=== PATIENT | female | born 1975 | race Caucasian/White ===

== ENCOUNTER 2021-02-19 18:12 | Observation (INO) | payer OTHER ==
[~2021-02-19] VITALS: Ht 167.7 cm; Wt 76.8 kg
[2021-02-19] MEDS ORDERED: NS IV 1000 ML 1,000 ML IV SCH (18:30)
[2021-02-19 18:33] LABS: HEMATOCRIT 42 % (35-52); HEMOGLOBIN 14.1 G/DL (11.5-16.0); MEAN CORPUSCULAR HEMOGLOBIN 30 PG (25-34); MEAN CORPUSCULAR VOLUME 90 FL (80-99)
[2021-02-19 18:34] LABS: BASOPHILS # (AUTO) 0.1 10^3/uL (0.0-0.1); BASOPHILS % (AUTO) 1 % (0-10); EOSINOPHILS # (AUTO) 0.2 10^3/uL (0.0-0.3); EOSINOPHILS % (AUTO) 2 % (0-10); LYMPHOCYTES # (AUTO) 4.1 X 10^3 (1.0-4.0); LYMPHOCYTES % (AUTO) 36 % (12-44); MEAN CORPUSCULAR HGB CONC 34 G/DL (32-36); MEAN PLATELET VOLUME 9.3 FL (7.4-10.4); MONOCYTES # (AUTO) 0.7 X 10^3 (0.0-1.0); MONOCYTES % (AUTO) 7 % (0-12); NEUTROPHILS # (AUTO) 5.9 X 10^3 (1.8-7.8); NEUTROPHILS % (AUTO) 53 % (42-75); PLATELET COUNT 325 10^3/uL (130-400)
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
[2021-02-19 18:53] LABS: ALANINE AMINOTRANSFERASE 8 U/L (0-55); ALKALINE PHOSPHATASE 80 U/L (40-136); BILIRUBIN,TOTAL 0.2 MG/DL (0.1-1.0); BUN/CREATININE RATIO 16; CALCIUM 8.6 MG/DL (8.5-10.1); CARBON DIOXIDE 20 MMOL/L (21-32); CHLORIDE 106 MMOL/L (98-107); CREATININE SERUM 1.02 MG/DL (0.60-1.30); GFR ESTIMATED 58; GLUCOSE 129 MG/DL (70-105); POTASSIUM 4.2 MMOL/L (3.6-5.0); SODIUM 141 MMOL/L (135-145); TOTAL PROTEIN 6.6 GM/DL (6.4-8.2)
[2021-02-19 18:54] LABS: ACETAMINOPHEN < 10 UG/ML (10-30); SALICYLATE < 0.3 MG/DL (5.0-20.0)
[2021-02-19] MEDS ORDERED: NS IV 1000 ML 1,000 ML IV STA (19:37)
[2021-02-19 21:18] LABS: BILIRUBIN,URINE NEGATIVE (NEGATIVE); CLARITY,URINE CLEAR; COLOR,URINE YELLOW; GLUCOSE, URINE (UA) NEGATIVE (NEGATIVE); KETONES,URINE NEGATIVE (NEGATIVE); LEUKOCYTE ESTERASE ,URINE NEGATIVE (NEGATIVE); NITRITE,URINE NEGATIVE (NEGATIVE); PROTEIN,URINE NEGATIVE (NEGATIVE)
[2021-02-19 21:24] LABS: BACTERIA,URINE TRACE /HPF; RBC,URINE RARE /HPF; SQUAMOUS EPITHELIAL CELL,UR 0-2 /HPF
[2021-02-19 21:26] LABS: AMPHETAMINE SCREEN, URINE NEGATIVE (NEGATIVE); BARBITURATE SCREEN URINE NEGATIVE (NEGATIVE); BENZODIAZEPINES SCREEN URINE POSITIVE (NEGATIVE); CANNABINOID SCREEN, URINE NEGATIVE (NEGATIVE); COCAINE SCREEN URINE NEGATIVE (NEGATIVE); METHADONE STAT NEGATIVE (NEGATIVE); METHAMPHETAMINE SCREEN URINE S NEGATIVE (NEGATIVE); OPIATE SCREEN URINE NEGATIVE (NEGATIVE); OXYCODONE STAT NEGATIVE (NEGATIVE); PROPOXYPHENE STAT NEGATIVE (NEGATIVE); TRICYCLIC ANTIDEPRESSANTS SCRE NEGATIVE (NEGATIVE)
[2021-02-19 21:42] VITALS: BP 118/80
[2021-02-19] MEDS ORDERED: ALPR.25T PO (23:35)
[2021-02-19] MEDS ORDERED: BREX0.5T PO (23:35)
[2021-02-19] MEDS ORDERED: ZOLP5TAB7 PO (23:35)
[2021-02-19] MEDS ORDERED: LEVO1TAB43 PO (23:35)
[2021-02-20 02:56] LABS: BASOPHILS # (AUTO) 0.1 10^3/uL (0.0-0.1); BASOPHILS % (AUTO) 1 % (0-10); EOSINOPHILS # (AUTO) 0.2 10^3/uL (0.0-0.3); EOSINOPHILS % (AUTO) 2 % (0-10); HEMATOCRIT 39 % (35-52); HEMOGLOBIN 13.3 g/dL (11.5-16.0); LYMPHOCYTES % (AUTO) 40 % (12-44); MEAN CORPUSCULAR HEMOGLOBIN 31 pg (25-34); MEAN CORPUSCULAR HGB CONC 34 g/dL (32-36); MEAN CORPUSCULAR VOLUME 90 fL (80-99); MEAN PLATELET VOLUME 9.3 fL (9.0-12.2); MONOCYTES # (AUTO) 0.5 10^3/uL (0.0-1.0); MONOCYTES % (AUTO) 5 % (0-12); NEUTROPHILS # (AUTO) 5.1 10^3/uL (1.8-7.8); NEUTROPHILS % (AUTO) 52 % (42-75); PLATELET COUNT 274 10^3/uL (130-400); WHITE BLOOD COUNT 9.8 10^3/uL (4.3-11.0)
--- NOTE | 2021-02-20 03:08 | Pulmonary Consultation ---
BELL STEWART MED STUDENT 02/20/21 0308: History of Present Illness History of Present Illness Date Seen by Provider: February 20, 2021 Time Seen by Provider: 03:06 History of Present Illness Patient awake upon entering room. Reports presenting to ED via EMS due to suicide attempt. States she got into an argument with her , which prompted her to take 9 ambien, drink a "tall boy" beer, and drink a bottle and a half of wine. She has never had a past suicide attempt per patient report. Currently denies suicidal/homicidal ideation. Reports feeling depressed. Slow to respond to questions. Is alert and oriented x 4. Denies pain. Denies chest pain, SOB, headache, nausea, and vomiting. She has no questions currently. Allergies and Home Medications Allergies Coded Allergies: Sulfa (Sulfonamide Antibiotics) (Verified Allergy, Unknown, Hives, 02/19/21) Home Medications ALPRAZolam 0.25 Mg Tab, 0.25 MG PO BID, (Reported) Brexpiprazole 0.5 Mg Tablet, 0.5 MG PO DAILY, (Reported) Levonorgestrel-Ethin Estradiol 1 Each Tablet, 1 EACH PO DAILY, (Reported) Zolpidem Tartrate 5 Mg Tablet, 5 MG PO HS, (Reported) Past Onoskud-Dfqnto-Vwvozy Hx Past Med/Social Hx: Reviewed Nursing Past Med/Soc Hx Patient Social History Alcohol Use: Occasionally Uses Smoking Status: Former Smoker 2nd Hand Smoke Exposure: No Recent Infectious Disease Expo: No Recent Hopitalizations: No Have you traveled recently?: No Alcohol Use?: Yes Seasonal Allergies Seasonal Allergies: No Past Medical History Surgeries: No Respiratory: No Asthma Cardiac: No Neurological: No Genitourinary: No Gastrointestinal: No Musculoskeletal: No Endocrine: No HEENT: No Cancer: No Psychosocial: Yes Sleep Difficulties, Anxiety, Depression Nursing Suicide Risk Notes: Patient presents to the ED with c/o of overdose. Patient states that she took 9 12.5mg ambien tablets, drank 20 oz of beer, and 1.5 bottles of wine. She states she took the medications because her and her had gotten into an argument. She denies any suicidal ideation at this time. Integumentary: No Review of Systems Constitutional: No: Fever, Chills Eyes: No: Pain, Vision change ENT: No: Ear pain, Mouth pain Respiratory: No: Cough, Shortness of breath Cardiovascular: No: Chest Pain, Palpitations Gastrointestinal: No: Nausea, Vomiting, Abdominal Pain Genitourinary: No Dysuria, No Frequency Musculoskeletal: No: neck pain, back pain Skin: No: Rash, Lesions Neurological: No: Weakness, Numbness Sepsis Event Evaluation Height, Weight, BMI Height: '" Weight: lbs. oz. kg; 25.88 BMI Method: Exam Exam Vital Signs Date Time Temp Pulse Resp B/P (MAP) Pulse Ox O2 Delivery O2 Flow Rate FiO2 02/20/21 00:30 110 17 116/104 (108) 94 Nasal Cannula 2.00 02/20/21 00:10 113 02/20/21 00:00 111 29 136/93 (107) 99 Nasal Cannula 2.00 02/19/21 23:30 106 19 127/94 (105) 95 Nasal Cannula 2.00 02/19/21 23:30 97 Nasal Cannula 2.00 02/19/21 23:15 117 27 135/88 (104) 96 Nasal Cannula 2.00 02/19/21 23:00 106 25 133/94 (107) 95 Nasal Cannula 2.00 02/19/21 22:45 106 25 119/86 (97) 95 Nasal Cannula 2.00 02/19/21 21:42 37.1 121 24 118/80 (97) 93 Room Air 02/19/21 18:20 37.1 124 15 130/80 (97) 93 Room Air I & O 02/20/21 07:00 Intake Total 50 ml Output Total 100 ml Balance -50 ml Height & Weight Height: '" Weight: lbs. oz. kg; 25.88 BMI Method: General Appearance: No Apparent Distress, WD/WN HEENT: PERRL/EOMI, Pharynx Normal Neck: Full Range of Motion, Normal Inspection Respiratory: Lungs Clear, Normal Breath Sounds, No Accessory Muscle Use Cardiovascular: No Edema, Normal Peripheral Pulses, Tachycardia Capillary Refill: Less Than 3 Seconds Peripheral Pulses: 2+ Dorsalis Pedis (R), 2+ Left Dors-Pedis (L), 2+ Radial Pulses (R), 2+ Radial Pulses (L) Gastrointestinal: normal bowel sounds, non tender, soft Extremity: Normal Capillary Refill, Non Tender, No Calf Tenderness, No Pedal Edema Neurologic/Psychiatric: Alert, Oriented x3 Skin: Normal Color, Warm/Dry Lymphatic: No Adenopathy Results Lab Laboratory Tests 02/19/21 18:24 02/20/21 02:35 Assessment/Plan Assessment/Plan Suicide attempt with ingestion of Ambien and alcohol -suicide precautions -seizure precautions, PRN ativan -poison control has been contacted by ED provider -Continue IVF's Alcohol intoxication -ETOH level 139 in ED -Monitor closely -PRN lorazepam Depression with suicidal ideation -Will need mental health consult History of Anxiety/Depression GI Prophylaxis -Protonix MARLENE VALIENTE DO 02/20/21 0415: Allergies and Home Medications Allergies Coded Allergies: Sulfa (Sulfonamide Antibiotics) (Verified Allergy, Unknown, Hives, 02/19/21) Home Medications ALPRAZolam 0.25 Mg Tab, 0.25 MG PO BID, (Reported) Brexpiprazole 0.5 Mg Tablet, 0.5 MG PO DAILY, (Reported) Levonorgestrel-Ethin Estradiol 1 Each Tablet, 1 EACH PO DAILY, (Reported) Zolpidem Tartrate 5 Mg Tablet, 5 MG PO HS, (Reported) Review of Systems Time Seen by Provider: 04:13 Assessment/Plan Assessment/Plan Suicide attempt with ingestion of Ambien xanax and alcohol -suicide precautions -seizure precautions, PRN ativan -poison control has been contacted by ED provider -Continue IVF's Alcohol intoxication -ETOH level 139 in ED -Monitor closely -PRN lorazepam Depression with suicidal ideation -Will need mental health consult History of Anxiety/Depression GI Prophylaxis -Protonix Supervisory-Addendum Brief Verification & Attestation Participated in pt care: history, MDM, physical Personally performed: exam, history, MDM Care discussed with: Medical Student Procedures: n/a Results interpretation: Verified all documentation Verification and Attestation of Medical Student E/M Service A medical student performed and documented this service in my presence. I reviewed and verified all information documented by the medical student and made modifications to such information, when appropriate. I personally performed the physical exam and medical decision making. Marlene Valiente, February 20, 2021,04:15 BELL STEWART MED STUDENT February 20, 2021 03:08 MARLENE VALIENTE DO February 20, 2021 04:15
[2021-02-20 03:09] LABS: ALBUMIN 3.6 GM/DL (3.2-4.5); CHLORIDE 108 MMOL/L (98-107); SODIUM 139 MMOL/L (135-145)
[2021-02-20 03:12] LABS: GLUCOSE 80 MG/DL (70-105); TOTAL PROTEIN 6.3 GM/DL (6.4-8.2)
[2021-02-20 03:13] LABS: BILIRUBIN,TOTAL 0.2 MG/DL (0.1-1.0); CARBON DIOXIDE 22 MMOL/L (21-32)
[2021-02-20 03:15] LABS: ALKALINE PHOSPHATASE 56 U/L (40-136); CREATININE SERUM 0.83 MG/DL (0.60-1.30); GFR ESTIMATED > 60; PHOSPHORUS 3.1 MG/DL (2.3-4.7)
[2021-02-20 03:17] LABS: BUN/CREATININE RATIO 16
[2021-02-20 03:18] LABS: ALANINE AMINOTRANSFERASE 10 U/L (0-55); MAGNESIUM 2.1 MG/DL (1.6-2.4)
[2021-02-20] MEDS: NS IV 1000 ML 1,000 ML IV SCH ×2 (06:19→10:13)
[2021-02-20] MEDS: PANTOPRAZOLE 40 MG (PROTONIX) VIAL IV SCH ×2 (06:19→09:35)
[2021-02-20] MEDS ORDERED: THIAMINE INJECTION 100 MG, FOLIC ACID INJECTION 1 MG, VITAMIN MULTI INJECTION 10 ML, MA... IV SCH ×5 (09:00)
--- NOTE | 2021-02-20 09:02 | Diagnostic Imaging Report ---
INDICATION: Alcohol intoxication. TIME OF EXAM: 3:23 AM COMPARISON: No prior studies are available for comparison. FINDINGS: The heart size normal. The lungs appear to be clear. No infiltrates are seen. There is no effusion or pneumothorax. IMPRESSION: No acute cardiopulmonary process is detected. Dictated by: Dictated on workstation # [id number]
[2021-02-20] MEDS ORDERED: NF-ZOL12.5 PO (09:21)
[2021-02-20] MEDS ORDERED: NAPR220T66 PO (09:21)
[2021-02-20] MEDS ORDERED: ALPR0.254 PO (09:21)
[2021-02-20] MEDS ORDERED: BREX2TAB PO (09:21)
[2021-02-20] MEDS ORDERED: ESCI20TA39 PO (09:21)
--- NOTE | 2021-02-20 11:13 | Short Stay Summary ---
HPI History of Present Illness: 45 yo F that presented after intentional ingestion of ambien and drinking 1/2 bottle of wine after an arguement with her . States that she has never done anything like this before and has not had an admission for mental health in the past. States that she really was not wanting to hurt herself or kill herself it was more of a spur of the moment thing because she was upset. States that she sees psych at [facility] but she does not like her provider currently because he took her off of some of her medications. Source: patient Date seen by provider: February 20, 2021 Time Seen by Provider: 09:10 Attending Physician Opal Borges MD PCP Pratik Weaver MD Consult Date of Admission February 19, 2021 at 22:45 Home Medications Home Medications Reviewed patient Home Medication Reconciliation performed by pharmacy medication reconciliations greenhouse technician and/or nursing. Patients Allergies have been reviewed. Allergies Coded Allergies: Sulfa (Sulfonamide Antibiotics) (Verified Allergy, Unknown, Hives, 02/19/21) IAU-Rvnpet-Coagkl Hx Patient Social History Smoking Status: Former Smoker 2nd Hand Smoke Exposure: No Recent Hopitalizations: No Alcohol Use?: Yes Have you traveled recently?: No Past Medical History Mood Disorder Insomnia Family Medical History Significant Family History: No Pertinent Family Hx Review of Systems ([facility]) Constitutional: no symptoms reported; No fever, No malaise, No weakness EENTM: no symptoms reported; No mouth pain, No nose congestion, No nose pain Respiratory: no symptoms reported; No cough, No orthopnea, No short of breath Cardiovascular: no symptoms reported; No chest pain, No edema, No palpitations Gastrointestinal: no symptoms reported; No abdominal pain, No constipation, No diarrhea, No nausea, No vomiting Genitourinary: no symptoms reported; No dysuria, No frequency, No hematuria : No Musculoskeletal: no symptoms reported; No back pain, No joint pain, No muscle pain Skin: no symptoms reported Psychiatric/Neurological: Depressed; Denies Headache, Denies Weakness Reviewed Test Results Reviewed Test Results Lab Laboratory Tests Test 02/19/21 18:24 02/19/21 21:10 02/20/21 02:35 Range/Units White Blood Count 11.0 9.8 4.3-11.0 10^3/uL Red Blood Count 4.67 4.36 3.80-5.11 10^6/uL Hemoglobin 14.1 13.3 11.5-16.0 g/dL Hematocrit 42 39 35-52 % Mean Corpuscular Volume 90 90 80-99 fL Mean Corpuscular Hemoglobin 30 31 25-34 pg Mean Corpuscular Hemoglobin Concent 34 34 32-36 g/dL Red Cell Distribution Width 13.7 13.7 10.0-14.5 % Platelet Count 325 274 130-400 10^3/uL Mean Platelet Volume 9.3 9.3 9.0-12.2 fL Immature Granulocyte % (Auto) 1 1 % Neutrophils (%) (Auto) 53 52 42-75 % Lymphocytes (%) (Auto) 36 40 12-44 % Monocytes (%) (Auto) 7 5 0-12 % Eosinophils (%) (Auto) 2 2 0-10 % Basophils (%) (Auto) 1 1 0-10 % Neutrophils # (Auto) 5.9 5.1 1.8-7.8 10^3/uL Lymphocytes # (Auto) 4.1 H 4.0 1.0-4.0 10^3/uL Monocytes # (Auto) 0.7 0.5 0.0-1.0 10^3/uL Eosinophils # (Auto) 0.2 0.2 0.0-0.3 10^3/uL Basophils # (Auto) 0.1 0.1 0.0-0.1 10^3/uL Immature Granulocyte # (Auto) 0.1 0.1 0.0-0.1 10^3/uL Sodium Level 141 139 135-145 MMOL/L Potassium Level 4.2 4.0 3.6-5.0 MMOL/L Chloride Level 106 108 H 98-107 MMOL/L Carbon Dioxide Level 20 L 22 21-32 MMOL/L Anion Gap 15 H 9 5-14 MMOL/L Blood Urea Nitrogen 16 13 7-18 MG/DL Creatinine 1.02 0.83 0.60-1.30 MG/DL Estimat Glomerular Filtration Rate 58 > 60 BUN/Creatinine Ratio 16 16 Glucose Level 129 H 80 70-105 MG/DL Calcium Level 8.6 8.0 L 8.5-10.1 MG/DL Corrected Calcium 8.6 8.3 L 8.5-10.1 MG/DL Total Bilirubin 0.2 0.2 0.1-1.0 MG/DL Aspartate Amino Transf (AST/SGOT) 12 14 5-34 U/L Alanine Aminotransferase (ALT/SGPT) 8 10 0-55 U/L Alkaline Phosphatase 80 56 40-136 U/L Total Protein 6.6 6.3 L 6.4-8.2 GM/DL Albumin 4.0 3.6 3.2-4.5 GM/DL Serum Test, Qualitative NEGATIVE NEGATIVE Salicylates Level < 0.3 L 5.0-20.0 MG/DL Acetaminophen Level < 10 L 10-30 UG/ML Serum Alcohol 139 H <10 MG/DL Urine Color YELLOW Urine Clarity CLEAR Urine pH 6.0 5-9 Urine Specific [place] 1.025 H 1.016-1.022 Urine Protein NEGATIVE NEGATIVE Urine Glucose (UA) NEGATIVE NEGATIVE Urine Ketones NEGATIVE NEGATIVE Urine Nitrite NEGATIVE NEGATIVE Urine Bilirubin NEGATIVE NEGATIVE Urine Urobilinogen 0.2 < = 1.0 MG/DL Urine Leukocyte Esterase NEGATIVE NEGATIVE Urine RBC (Auto) NEGATIVE NEGATIVE Urine RBC RARE /HPF Urine WBC 2-5 /HPF Urine Squamous Epithelial Cells 0-2 /HPF Urine Crystals NONE /LPF Urine Bacteria TRACE /HPF Urine Casts NONE /LPF Urine Mucus MODERATE H /LPF Urine Culture Indicated NO Urine Opiates Screen NEGATIVE NEGATIVE Urine Oxycodone Screen NEGATIVE NEGATIVE Urine Methadone Screen NEGATIVE NEGATIVE Urine Propoxyphene Screen NEGATIVE NEGATIVE Urine Barbiturates Screen NEGATIVE NEGATIVE Ur Tricyclic Antidepressants Screen NEGATIVE NEGATIVE Urine Phencyclidine Screen NEGATIVE NEGATIVE Urine Amphetamines Screen NEGATIVE NEGATIVE Urine Methamphetamines Screen NEGATIVE NEGATIVE Urine Benzodiazepines Screen POSITIVE H NEGATIVE Urine Cocaine Screen NEGATIVE NEGATIVE Urine Cannabinoids Screen NEGATIVE NEGATIVE Phosphorus Level 3.1 2.3-4.7 MG/DL Magnesium Level 2.1 1.6-2.4 MG/DL Physical Exam-([facility]) Physical Exam Vital Signs VS - Last 72 Hours, by Label 02/19/21 02/19/21 02/19/21 02/19/21 18:20 21:42 22:45 23:00 Temp 37.1 37.1 Pulse 124 121 106 106 Resp 15 24 25 25 B/P (MAP) 130/80 (97) 118/80 (97) 119/86 (97) 133/94 (107) Pulse Ox 93 93 95 95 O2 Delivery Room Air Room Air Nasal Cannula Nasal Cannula O2 Flow Rate 2.00 2.00 5/1302/19/21 02/19/21 02/19/21 23:00 23:15 23:30 23:30 Temp 36.4 Pulse 117 106 Resp 27 19 B/P (MAP) 135/88 (104) 127/94 (105) Pulse Ox 96 97 95 O2 Delivery Nasal Cannula Nasal Cannula Nasal Cannula O2 Flow Rate 2.00 2.00 2.00 02/20/21 02/20/21 02/20/21 02/20/21 00:00 00:10 00:30 01:00 Pulse 111 113 110 101 Resp 29 17 24 B/P (MAP) 136/93 (107) 116/104 (108) 142/106 (118) Pulse Ox 99 94 99 O2 Delivery Nasal Cannula Nasal Cannula Nasal Cannula O2 Flow Rate 2.00 2.00 2.00 02/20/21 02/20/21 02/20/21 02/20/21 02:00 03:00 04:00 04:00 Temp 36.3 Pulse 107 87 Resp 15 24 B/P (MAP) 153/111 (125) 121/90 (100) Pulse Ox 97 100 100 O2 Delivery Nasal Cannula Nasal Cannula Nasal Cannula O2 Flow Rate 2.00 2.00 2.00 02/20/21 02/20/21 02/20/21 02/20/21 04:00 05:00 06:00 06:36 Pulse 96 104 112 B/P (MAP) 116/77 (90) 117/81 (93) 135/90 (105) Pulse Ox 95 97 100 96 O2 Delivery Nasal Cannula Nasal Cannula Nasal Cannula Room Air O2 Flow Rate 2.00 2.00 2.00 02/20/21 02/20/21 02/20/21 02/20/21 07:00 07:00 08:00 08:43 Pulse 101 104 95 B/P (MAP) 120/90 (100) 127/86 (100) Pulse Ox 95 97 91 O2 Delivery Room Air Room Air Room Air 02/20/21 02/20/21 09:00 10:00 Pulse 115 106 Resp 21 24 B/P (MAP) 130/83 (99) 125/66 (85) Pulse Ox 93 94 O2 Delivery Room Air Room Air Capillary Refill : Less Than 3 Seconds General Appearance: WD/WN, no apparent distress HEENT: PERRL/EOMI Neck: non-tender, full range of motion, supple Respiratory: chest non-tender, lungs clear, normal breath sounds, no resp iratory distress, no accessory muscle use Cardiovascular: normal peripheral pulses, regular rate, rhythm, no edema, no murmur Gastrointestinal: normal bowel sounds, non tender, soft, no organomegaly Back: normal inspection, no CVA tenderness Extremities: normal range of motion, non-tender, normal inspection, no pedal edema, no calf tenderness, normal capillary refill 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, no motor/sensory deficits, alert, normal mood/affect, oriented x 3 Skin: normal color, warm/dry Lymphatic: no adenopathy Short Stay Diagnosis Discharge Diagnosis-Short Stay Admission Diagnosis Intentional Drug Overdose Depression Suicidal Ideation Final Discharge Diagnosis See Above Conclusion Plan See problem list Was the Problem List Reviewed?: Yes Assessment/Plan Assessment/Plan Admission Status: Observation (1) Overdose of sedative or hypnotic Status: Acute Assessment & Plan: - Patient awake and without complaints, Medically stable, information given for crisis hotline, will d/c home with safety plan Qualifiers: Qualified Codes: T42.72XA - Poisoning by unspecified antiepileptic and sedative-hypnotic drugs, intentional self-harm, initial encounter (2) Alcohol intoxication Status: Acute Qualifiers: Qualified Codes: F10.920 - Alcohol use, unspecified with intoxication, uncomplicated (3) Depression with suicidal ideation Status: Acute OPAL BORGES MD February 20, 2021 11:13
--- NOTE | 2021-02-20 11:17 | Discharge Summary ---
Discharge [facility] Reconcile Patient Problems Problems Reviewed?: Yes Discharge Medications New, Converted or Re-Newed RX: Other Continued Medications: ALPRAZolam (ALPRAZolam) 0.25 Mg Tablet 0.25 MG PO BID, TAB Brexpiprazole (Rexulti) 2 Mg Tablet 2 MG PO DAILY, TAB Escitalopram Oxalate (Escitalopram Oxalate) 20 Mg Tablet 20 MG PO DAILY, TAB Levonorgestrel-Ethin Estradiol (Lori 90-20 Mcg Tablet) 1 Each Tablet 1 EACH PO DAILY, TAB Discontinued Medications: Naproxen Sodium (Aleve) 220 Mg Tablet 220-440 MG PO BID PRN for PAIN-MILD (1-4), TAB Zolpidem Tartrate (Zolpidem Tartrate ER) 12.5 Mg Tab.mphase 12.5 MG PO HS, TAB Patient Instructions Goal/Follow Up Appt: - F/u with PCP next week Activity & Diet Discharge Diet: No Restrictions Activity as Tolerated: Yes OPAL SY MD February 20, 2021 11:17
== END 2021-02-20 11:16 | disposition home or self-care (01) ==
LOC: ER FS 18:14 → ICU 22:45
PROVIDERS: ADMIT Family Medicine; ATTEND Family Medicine
DX: T42.72XA Poisoning by unspecified antiepileptic and sedative-hypnotic drugs, intentional self-harm, initial encounter (principal); F10.920 Alcohol use, unspecified with intoxication, uncomplicated; F32.9 Major depressive disorder, single episode, unspecified; F41.9 Anxiety disorder, unspecified; T14.91XA Suicide attempt, initial encounter; J45.909 Unspecified asthma, uncomplicated; Z79.899 Other long term (current) drug therapy; Z87.891 Personal history of nicotine dependence
CPT/HCPCS: 36415; 71045; 80053 ×2; 80306; 81000; 83735; 84100; 84703; 85025 ×2; 87081; 93005; 93041; 99285; G0378; G0480 ×3; 80320; 80329

== ENCOUNTER 2021-12-26 14:30 | Emergency (ER) | payer OTHER ==
[~2021-12-26 14:30] MED LIST: ALPR.25T PO; ALPR0.254 PO; BREX0.5T PO; BREX2TAB PO; ESCI20TA39 PO; LEVO1TAB43 PO; NAPR220T66 PO; NF-ZOL12.5 PO; ZOLP5TAB7 PO
--- NOTE | 2021-12-26 14:38 | ED EENT ---
History of Present Illness General Stated Complaint: LT EYE IRRITATION Source: patient Exam Limitations: no limitations History of Present Illness Date Seen by Provider: Dec 26, 2021 Time Seen by Provider: 14:32 Initial Comments 46yoF with no pertinent PMH coming in due to left eye swelling. She slept in her contacts last night. Took out her contact this morning because she felt something was stuck in her eye like dirt. Flushed it out with water after and shortly after the eye started swelling. Went to urgent care and was referred here. She is not having pain, just drainage and itching which is constant, moderate, and nothing seems to make it better or worse. She left her contacts out and has been using glasses. Denies any vision loss, headache, fever, discharge from her eye, chest pain, SOA, abd pain, n/v/d, weakness, numbness, or any other concerns. Allergies and Home Medications Allergies Coded Allergies: Sulfa (Sulfonamide Antibiotics) (Verified Allergy, Unknown, Hives, 02/19/21) Patient Home Medication List Home Medication List Reviewed: Yes ALPRAZolam (ALPRAZolam) 0.25 Mg Tablet, 0.25 MG PO BID, (Reported) Entered as Reported by: YAN GALEANO on 02/20/21920 Amoxicillin/Potassium Clav (Augmentin 500-125 Tablet) 1 Each Tablet, 1 EACH PO BID Prescribed by: FLORES ALVAREZ on 12/26/21 1502 Brexpiprazole (Rexulti) 2 Mg Tablet, 2 MG PO DAILY, (Reported) Entered as Reported by: YAN GALEANO on 02/20/21920 Cetirizine HCl (Cetirizine HCl) 10 Mg Tablet, 10 MG PO DAILY Prescribed by: FLORES ALVAREZ on 12/26/21 1502 Escitalopram Oxalate (Escitalopram Oxalate) 20 Mg Tablet, 20 MG PO DAILY, (Rep orted) Entered as Reported by: YAN GALEANO on 02/20/21920 Levonorgestrel-Ethin Estradiol (Lori 90-20 Mcg Tablet) 1 Each Tablet, 1 EACH PO DAILY, (Reported) Entered as Reported by: URIEL POWERS on 02/19/21 2335 levoFLOXacin (levoFLOXacin) 5 Ml Drops, 2 DROPS OP Q6H Prescribed by: FLORES ALVAREZ on 12/26/21 1502 Review of Systems Review of Systems Constitutional: No chills, No fever Eyes: Foreign Body Sensation, Contact Lenses Ears: No Symptoms Reported Nose: no symptoms reported Mouth: no symptoms reported Throat: no symptoms reported Respiratory: no symptoms reported Cardiovascular: no symptoms reported Gastrointestinal: no symptoms reported Musculoskeletal: no symptoms reported Skin: no symptoms reported Neurological: No Symptoms Reported Hematologic/Lymphatic: No Symptoms Reported Immunological/Allergic: no symptoms reported All Other Systems Reviewed Negative Unless Noted: Yes Past Rhdweyd-Vqdufk-Zkyesx Hx Patient Social History Tobacco Use?: No Seasonal Allergies Seasonal Allergies: No Past Medical History Surgeries: Yes (wisdom teeth) Respiratory: No Asthma Cardiac: No Neurological: No Genitourinary: No Gastrointestinal: No Musculoskeletal: No Endocrine: No HEENT: No Cancer: No Psychosocial: Yes Sleep Difficulties, Anxiety, Depression Integumentary: No Family Medical History No Pertinent Family Hx Visual Acuity : Eye Location: Right Vision Acuity Degree: 20/20 Physical Exam Vital Signs Vital Signs - First Documented 12/26/21 14:39 Temp 36.1 Pulse 116 Resp 14 B/P (MAP) 144/103 (117) Pulse Ox 99 O2 Delivery Room Air Height, Weight, BMI Height: '" Weight: lbs. oz. kg; 25.88 BMI Method: General Appearance: WD/WN, no apparent distress Eyes: right eye normal inspection; left eye PERRL, left eye EOMI, left eye conjunctival inflammation, left eye lid inflammation, left eye other (normal fluorescine exam without abrasion, no proptosis, no pain with EOM, cobblestoning in the inner lids, periorbital swelling) Ears: bilateral ear auricle normal, bilateral ear canal normal Nose: normal inspection Mouth/Throat: normal mouth inspection, pharynx normal Neck: non-tender, full range of motion, supple, normal inspection Cardiovascular: regular rate, rhythm, no edema, no murmur Respiratory: chest non-tender, lungs clear, normal breath sounds, no respiratory distress, no accessory muscle use Gastrointestinal: normal bowel sounds, non tender, soft; No distended, No guarding, No rebound 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 ONCE ONCE OP 12/26/21 14:45 12/26/21 14:46 DC 12/26/21 14:57 4 ML Vital Signs/I&O 12/26/21 14:39 Temp 36.1 Pulse 116 Resp 14 B/P (MAP) 144/103 (117) Pulse Ox 99 O2 Delivery Room Air Progress Progress Note : Progress Note 46yoF with above history coming in due to L eye swelling. ABCs intact, VSS on presentation. Exam with what appears to be a conjunctivitis of the left eye with some periorbital swelling. No signs of septal cellulitis including no pain with EOM. No pain, normal visual acuity. No signs of acute angle-closure glaucoma as well. Also does not have any headache which is reassuring. This could be an allergic conjunctivitis, but given her contact use will treat as if it is bacterial. We will give her antibiotics and have her follow-up as an outpatient. She was sent home in stable condition with strict return precautions. Departure Impression Primary Impression: Conjunctivitis Qualified Codes: H10.32 - Unspecified acute conjunctivitis, left eye Additional Impression: Facial cellulitis Disposition: HOME, SELF-CARE Condition: Stable Departure-Patient Inst. Decision time for Depature: 14:55 Referrals: ORLY MAHMOOD MD (PCP) Primary Care Physician Patient Instructions: Preseptal Cellulitis ED, Conjunctivitis ([facility]) ED Add. Discharge Instructions: You were seen in the emergency department for the swelling in her left eye with redness. Do not wear contacts for the next week, and just wear your glasses. Wash your hands really good every time you have to touch her left eye, but try to avoid touching it to avoid potential spread. No concern for early infection in the skin around her eye which will take an oral antibiotic for the next week. You also use eyedrops for the next week which are an antibiotic. You also start taking an allergy medicine to help with some of the drainage. I sent all these prescriptions to your pharmacy. If redness starts spreading 10 your face more in a really sharp demarcated line, he develop fever, or you develop significant pain when you are trying to lift different directions with your eyes, I recommend coming back to the ER. Otherwise please follow-up with your regular doctor in the next week to be sure things are improving. Scripts Cetirizine HCl (Cetirizine HCl) 10 Mg Tablet 10 MG PO DAILY for 14 Days, #14 TAB Prov: FLORES ALVAREZ MD 12/26/21 Amoxicillin/Potassium Clav (Augmentin 500-125 Tablet) 1 Each Tablet 1 EACH PO BID for 7 Days, #14 TAB Prov: FLORES ALVAREZ MD 12/26/21 levoFLOXacin (levoFLOXacin) 5 Ml Drops 2 DROPS OP Q6H for 7 Days, #5 ML Prov: FLORES ALVAREZ MD 12/26/21 FLORES ALVAREZ MD Dec 26, 2021 14:38
[2021-12-26] MEDS ORDERED: FLUORESCEIN (FLUOR-I-STRIPS) 1 MG STRP OU ONE (14:45)
[2021-12-26] MEDS ORDERED: TETRACAINE 0.5% OPHTH SOLN 4 ML BTL (SINGLE DOSE ONLY) OP ONE (14:45)
[2021-12-26] MEDS ORDERED: FLUORESCEIN (FLUOR-I-STRIPS) 1 MG STRP ONE (14:47)
[2021-12-26] MEDS ORDERED: AMOX-355 PO (15:02)
[2021-12-26] MEDS ORDERED: CETI10TA17 PO (15:02)
[2021-12-26] MEDS ORDERED: LEVO5DRO20 OP (15:02)
[2021-12-26 15:04] VITALS: BP 144/103
== END 2021-12-26 15:05 | disposition home or self-care (01) ==
LOC: EDUNIT# 14:30 → ER FS 14:31
DX: H10.9 Unspecified conjunctivitis (principal); L03.211 Cellulitis of face
CPT/HCPCS: 99281

== ENCOUNTER 2022-07-29 21:57 | Emergency (ER) | payer OTHER ==
[~2022-07-29] VITALS: Ht 162.5 cm; Wt 87.2 kg
[~2022-07-29 21:57] MED LIST changes: +AMOX-355 PO; +CETI10TA17 PO; +LEVO5DRO20 OP
--- NOTE | 2022-07-29 22:38 | ED Headache ---
General Chief Complaint: Head/Cervical Problems Stated Complaint: MIGRAINE Nursing Triage Note: Patient states that she has had a migraine for 4 hours with nausea. Patient reports taking 2 PM Tylenols. Patient also reports drinking 3 beers today. Source: patient History of Present Illness Date Seen by Provider: Jul 29, 2022 Time Seen by Provider: 22:37 Initial Comments 46-year-old female presenting with complaints of frontal headache that started approximately 4 hours ago. She states that she has nausea along with this. She denies any head trauma, fall, injury, fever, chills, ear pain, sinus drainage or congestion. She reports this feels similar to when she used to get migraine headaches. She had tried taking 2 Tylenol PMs about an hour prior to arrival. She states that she also has drank 3 beers today. She denies any ill contacts. She has had some dry heaves with the nausea but no actual vomiting. She denies any change in her vision, photophobia, numbness or weakness in her arms or legs. Timing/Duration: 4-6 hours Severity/Quality: severe, throbbing Location: frontal Prior Headaches/Recent Trauma: no recent headache/trauma, other (History of migraine headaches when she was in her 20s and 30s) Associated Symptoms: No confusion; fatigue, facial pain (Frontal forehead pain); No fever/chills, No flushing, No loss of consciousness; nausea/vomiting (Nausea with dry heaves); No nasal congestion, No nasal drainage, No numbness in legs/feet, No rash, No seizures, No sinus infection, No stiff neck, No vision changes, No weakness Allergies and Home Medications Allergies Coded Allergies: Sulfa (Sulfonamide Antibiotics) (Verified Allergy, Unknown, Hives, 02/19/21) Patient Home Medication List Home Medication List Reviewed: Yes ALPRAZolam (ALPRAZolam) 0.25 Mg Tablet, 0.25 MG PO BID, (Reported) Entered as Reported by: YAN GALEANO on 02/20/21920 Amoxicillin/Potassium Clav (Augmentin 500-125 Tablet) 1 Each Tablet, 1 EACH PO BID Prescribed by: FLORES ALVAREZ on 12/26/21 1502 Brexpiprazole (Rexulti) 2 Mg Tablet, 2 MG PO DAILY, (Reported) Entered as Reported by: YAN GAELANO on 5/14/21 0921 Cetirizine HCl (Cetirizine HCl) 10 Mg Tablet, 10 MG PO DAILY Prescribed by: FLORES ALVAREZ on 12/26/21 1502 Escitalopram Oxalate (Escitalopram Oxalate) 20 Mg Tablet, 20 MG PO DAILY, (Reported) Entered as Reported by: YAN GALEANO on 02/20/21 0921 Levonorgestrel-Ethin Estradiol (Lori 90-20 Mcg Tablet) 1 Each Tablet, 1 EACH PO DAILY, (Reported) Entered as Reported by: URIEL POWERS on 02/19/21 2335 levoFLOXacin (levoFLOXacin) 5 Ml Drops, 2 DROPS OP Q6H Prescribed by: FLORES ALVAREZ on 12/26/21 1502 Review of Systems Review of Systems Constitutional: No chills, No diaphoresis, No dizziness, No fever Eyes: Denies Blurred Vision, Denies Photophobia, Denies Vision Changes Ears, Nose, Mouth, Throat: denies ear pain, denies ear discharge, denies nose pain, denies nose discharge, denies epistaxis Respiratory: No cough, No short of breath Cardiovascular: No chest pain Gastrointestinal: nausea; No vomiting (Dry heaves but no vomiting) Genitourinary: No dysuria Musculoskeletal: no symptoms reported; No neck pain Skin: No change in color, No rash Psychiatric/Neurological: See HPI Past Uhzwdmb-Yfgtco-Opjhir Hx Patient Social History Tobacco Use?: No Substance use?: No Alcohol Use?: Yes Alcohol type: Beer Alcohol Frequency: Couple times a week Immunizations Up To Date First/Initial COVID19 Vaccinat: Yes COVID19 Vaccine 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[employer] Seasonal Allergies Seasonal Allergies: No Past Medical History Surgery/Hospitalization HX: None Surgeries: Yes (wisdom teeth) Respiratory: No Asthma Cardiac: No Neurological: No Genitourinary: No Gastrointestinal: No Musculoskeletal: No Endocrine: No HEENT: No Cancer: No Psychosocial: Yes Sleep Difficulties, Anxiety, Depression Integumentary: No Family Medical History No Pertinent Family Hx Physical Exam Vital Signs Vital Signs - First Documented 07/29/22 21:59 Temp 36.9 Pulse 126 Resp 16 B/P (MAP) 155/100 (118) Pulse Ox 94 O2 Delivery Room Air Capillary Refill : Less Than 3 Seconds Height, Weight, BMI Height: '" Weight: lbs. oz. kg; 33.00 BMI Method: General Appearance: no apparent distress, other (Patient appears somnolent) HEENT: PERRL/EOMI, normal ENT inspection, TMs normal, pharynx normal, other (Negative medina sign, negative raccoon sign, no CSF otorrhea, no CSF rhinorrhea, tender to palpation over the forehead.) Neck: non-tender, full range of motion, supple, normal inspection Cardiovascular: normal peripheral pulses, tachycardia Respiratory: chest non-tender, lungs clear, normal breath sounds, no respiratory distress, no accessory muscle use Gastrointestinal: normal bowel sounds, non tender, soft Extremities: normal range of motion, non-tender, normal capillary refill Psychiatric: alert, oriented x 3 Crainal Nerves: normal hearing, normal speech, PERRL Coordination/Gait: normal gait Motor/Sensory: no motor deficit, no sensory deficit Skin: normal color, warm/dry; No rash Progress/Results/Core Measures Results/Orders My Orders Orders - ZACHARY VELAZQUEZ MD Ketorolac Injection (Toradol Injection) (07/29/22 22:45) Ondansetron Oral Dissolve Tab (Zofran (07/29/22 22:45) Vital Signs/I&O 07/29/22 07/29/22 21:59 22:50 Temp 36.9 Pulse 126 108 Resp 16 18 B/P (MAP) 155/100 (118) 124/91 Pulse Ox 94 91 O2 Delivery Room Air Room Air Blood Pressure Mean: 118 Progress Progress Note : Progress Note As patient reports this feels similar to when she has had migraine headaches and she has had no acute illness symptoms or trauma will try treating with Toradol and Zofran. Since she already took Tylenol PM approximately an hour prior to arrival will defer adding any Benadryl to the migraine medications. Encouraged to rest in a cool dark room at home. Continue with hydration and regular medications. If not improving or having worsening symptoms check back with the clinic. She does have mild tachycardia and this may be due to her pain and not drinking much fluids today Departure Impression Primary Impression: Frontal headache Additional Impression: History of migraine headaches Disposition: HOME, SELF-CARE Condition: Stable Departure-Patient Inst. Decision time for Depature: 22:46 Referrals: ORLY MAHMOOD MD (PCP/Family) Primary Care Physician Patient Instructions: Headache, Adult ED, How to Keep Track of Your Headaches, Home Headache Remedies Add. Discharge Instructions: Try to go home and rest in a cool dark room. Continue with your home medicines as usual. If not having improvement after the medicine tonight check back with clinic tomorrow All discharge instructions reviewed with patient and/or family. Voiced understanding. ZACHARY VELAZQUEZ MD Jul 29, 2022 22:37
[2022-07-29] MEDS ORDERED: KETOROLAC 60 MG/2 ML VIAL IM STA (22:45)
[2022-07-29] MEDS ORDERED: ONDANSETRON 4 MG (ZOFRAN) ORAL DISSOLVE TAB PO STA (22:45)
[2022-07-29 22:50] VITALS: BP 124/91
== END 2022-07-29 22:53 | disposition home or self-care (01) ==
LOC: EDUNIT# 21:57 → ER FS 21:58
DX: G43.909 Migraine, unspecified, not intractable, without status migrainosus (principal); Z28.311 Partially vaccinated for COVID-19
CPT/HCPCS: 99284

== ENCOUNTER → 2022-11-30 | Outpatient (CLI) | payer OTHER ==
[~2022-11-30] MED LIST changes: +CATHETER FLUSH 10 ML SYR IV PRN; +HOLD METFORMIN - RECEIVED CONTRAST 20 ML VIAL IV SCH; +IOHEXOL 350 MG/ML 100 ML (OMNIPAQUE 350) VIAL IV ONE; +NS 100 ML (IVPB) BAG IV ONE
[2022-11-30 11:35] LABS: CALCIUM 9.4 MG/DL (8.5-10.1); CREATININE SERUM 1.05 MG/DL (0.60-1.30); POTASSIUM 4.1 MMOL/L (3.6-5.0)
[2022-11-30 11:36] LABS: ALBUMIN 4.3 GM/DL (3.2-4.5); BILIRUBIN,TOTAL 0.3 MG/DL (0.1-1.0)
--- NOTE | 2022-11-30 12:56 | Diagnostic Imaging Report ---
PROCEDURE: CT abdomen and pelvis with contrast. TECHNIQUE: Multiple contiguous axial images were obtained through the abdomen and pelvis after administration of intravenous contrast. Auto Exposure Controls were utilized during the CT exam to meet ALARA standards for radiation dose reduction. All CT scans use one or more of the following dose optimizing techniques: automated exposure control, MA and/or KvP adjustment based on patient size and exam type or iterative reconstruction. INDICATION: Abdominal pain and constipation. EXAMINATION: CT abdomen and pelvis with contrast 11/30/2022. FINDINGS: Minimal bibasilar atelectasis noted within the lungs, left worse than right. Within the abdomen and pelvis, the liver and spleen unremarkable. The pancreas and gallbladder unremarkable. The adrenal glands within normal limits. Kidneys unremarkable. There is a minimal wall thickening of the sigmoid colon to the rectosigmoid. This could be due to under distention with colitis not excluded. There is no free air. No free fluid. The appendix is unremarkable. There is no acute osseous abnormality. IMPRESSION: 1. Wall thickening of the descending colon to the rectosigmoid which could be due to under distention with colitis not excluded. Otherwise incidental findings as above. Dictated by: Dictated on workstation # [id number]
== END ==
LOC: RAD FS 10:59
PROVIDERS: ATTEND Allergy & Immunology
DX: K63.89 Other specified diseases of intestine (principal); K59.00 Constipation, unspecified
CPT/HCPCS: 36415; 74177; 80053; Q9967

== ENCOUNTER 2023-01-12 05:42 | Outpatient (CLI) | payer OTHER ==
[~2023-01-12] VITALS: Ht 160 cm; Wt 90.6 kg
[~2023-01-12 05:42] MED LIST changes: -CATHETER FLUSH 10 ML SYR IV PRN; -HOLD METFORMIN - RECEIVED CONTRAST 20 ML VIAL IV SCH; -IOHEXOL 350 MG/ML 100 ML (OMNIPAQUE 350) VIAL IV ONE; -NS 100 ML (IVPB) BAG IV ONE
[2023-01-12] MEDS ORDERED: CLN.1T PO (09:29)
[2023-01-12] MEDS ORDERED: BUPR300T98 PO (09:29)
[2023-01-12] MEDS ORDERED: LEVO50CA4 PO (09:30)
[2023-01-12] MEDS ORDERED: CROM40SP NS (09:30)
[2023-01-12] MEDS ORDERED: DICY10CA12 PO (09:30)
[2023-01-12] MEDS ORDERED: NF-ZOL12.5 PO (09:30)
== END 2023-01-12 09:33 ==
LOC: PREOP 05:42
PROVIDERS: ATTEND Surgery
DX: Z01.818 Encounter for other preprocedural examination (principal)

== ENCOUNTER → 2023-01-13 | Outpatient (CLI) | payer OTHER ==
[~2023-01-13] MED LIST changes: +BUPR300T98 PO; +CLN.1T PO; +CROM40SP NS; +DICY10CA12 PO; +LEVO50CA4 PO
--- NOTE | 2023-01-13 09:32 | Diagnostic Imaging Report ---
PROCEDURE: US Gallbladder. TECHNIQUE: Multiple real-time grayscale images were obtained over the right upper quadrant in various projections. INDICATION: Right upper quadrant pain. Liver parenchyma is homogeneous with normal echotexture. Portal vein is patent with hepatopetal flow. The gallbladder is clear with no stones or wall thickening. Common duct is not dilated. Pancreas, aorta and IVC are obscured by bowel gas. Right kidney measures 10.1 cm in length and appears normal. There is no ascites. IMPRESSION: Unremarkable right upper quadrant ultrasound. Dictated by: Dictated on workstation # [id number]
== END ==
LOC: RAD 07:34
PROVIDERS: ATTEND Surgery
DX: R10.11 Right upper quadrant pain (principal)
CPT/HCPCS: 76705

== ENCOUNTER 2023-01-21 09:11 | Day surgery (SDC) | payer OTHER ==
[~2023-01-21] VITALS: Ht 160 cm; Wt 90.6 kg
[2023-01-21] MEDS ORDERED: LACTATED RINGERS 1,000 ML IV STA (09:16)
[2023-01-21 09:30] VITALS: BP 160/111
[2023-01-21] MEDS ORDERED: PROPOFOL INJECTION 0 ML IV ONE (09:37)
--- NOTE | 2023-01-21 09:42 | Progress Note-Pre Operative ---
Pre-Operative Progress Note Date of Available H&P: Jan 06, 2023 Date H&P Reviewed: Jan 21, 2023 Time H&P Reviewed: 09:31 History & Physical: H&P Reviewed, Patient Examed, No changes noted Pre-Operative Diagnosis: Colitis JEFFREY ANDREWS DO Jan 21, 2023 09:42
[2023-01-21] MEDS ORDERED: MIDAZOLAM 2 MG/2 ML (VERSED) VIAL ONE (09:45)
[2023-01-21] MEDS ORDERED: PROPOFOL INJECTION 50 ML IV ONE (09:45)
[2023-01-21] MEDS ORDERED: proPOfol 200 MG/20 ML (DIPRIVAN) VIAL IV ONE (10:09)
[2023-01-21 10:20] VITALS: BP 108/77
--- NOTE | 2023-01-21 10:22 | Anesthesia-General Post-Op ---
MAC Patient Condition Mental Status/LOC: Same as Preop Cardiovascular: Satisfactory Nausea/Vomiting: Absent Respiratory: Satisfactory Pain: Controlled Complications: Absent Post Op Complications Complications None Follow Up Care/Instructions Patient Instructions None needed. Anesthesiology Discharge Order Discharge Order Patient is doing well, no complaints, stable vital signs, no apparent adverse anesthesia problems. No complications reported per nursing. LAN PAULA CRNA Jan 21, 2023 10:22
[2023-01-21 10:25] VITALS: BP 107/72
--- NOTE | 2023-01-21 10:26 | Progress Note-Post Operative ---
Post-Operative Progess Note Surgeon (s)/Technical Business Analyst (s) Surgeon JEFFREY ANDREWS DO Technical Business Analyst: RASHMI KerrII Pre-Operative Diagnosis Colitis Post-Operative Diagnosis Polyp Int Hemorrhoids Procedure & Operative Findings Date of Procedure 01/21/23 Procedure Performed/Findings Colonoscopy with snare Polypectomy PROCEDURE NOTE: After informed consent was obtained, the patient was brought to the endoscopy suite, placed in bed in left lateral decubitus position. She was administered IV sedation by the MANAGER ACCOUNT MANAGEMENT who then monitored her vitals the entire time, heart rate, blood pressure and pulse ox and the scope was inserted, pushed all the way to about 150 cm and pushed into the cecum, took a picture of appendiceal orifice and noted the ileocecal valve. Then slowly withdrew the scope insufflating to look circumferentially at the mtz starting in the cecum, up the ascending colon to the hepatic flexure, then down the transverse colon to the splenic flexure and into the descending colon. Found a polyp here and elected to remove it with a snare. Continued down into the sigmoid and then into the rectal vault. Retroflexed the scope and took picture of the internal hemorrhoids. The patient tolerated the procedure. She was recovered in endoscopy suite. Recommended for repeat colonoscopy in 5 years. Anesthesia Type IV sedation by MANAGER ACCOUNT MANAGEMENT Estimated Blood Loss Estimated blood loss (mL): scant Specimens/Packing Specimens Removed Desc colon polyp JEFFREY ANDREWS DO Jan 21, 2023 10:26
--- NOTE | 2023-01-21 10:27 | Endoscopy Discharge Instruct ---
Endo Procedure/Findings Findings 1.: Polyp 2.: Internal Hemorrhoids Discharge Instructions - Activity: You might feel a little sleepy until tomorrow. This is due to the medicine you received to relax you. Until tomorrow, you should: NOT drive a car, operate machinery or power tools. NOT drink any alcoholic beverages. NOT make any important decisions or sign importortant papers. Do not return to work until tomorrow, unless otherwise instructed. Resume previous activities tomorrow. Diet: Start by taking liquids. If you tolerate liquids, advance to solid food. 1.: Colonscopy in 5 years Notify Physician - If you experience excessive bleeding, unusual abdominal pain, fever, or chest pain, contact your doctor immediately. Follow-Up: Other Follow up in my office in one week JEFFREY ANDREWS DO Jan 21, 2023 10:27
[2023-01-21 10:30] VITALS: BP 107/72
[2023-01-21 11:00] VITALS: BP 136/83
[2023-01-21 11:15] VITALS: BP 136/83
== END 2023-01-21 11:15 | disposition home or self-care (01) ==
LOC: ENDO 09:11
PROVIDERS: ATTEND Surgery
DX: D12.4 Benign neoplasm of descending colon (principal); K64.8 Other hemorrhoids; K52.9 Noninfective gastroenteritis and colitis, unspecified; E66.9 Obesity, unspecified; Z87.891 Personal history of nicotine dependence; Z68.35 Body mass index [BMI] 35.0-35.9, adult
CPT/HCPCS: 84703; 88305

== ENCOUNTER → 2023-02-03 | Outpatient (CLI) | payer OTHER ==
[2023-02-03] MEDS: CATHETER FLUSH 10 ML SYR IVP PRN ×2 (10:11→11:51)
--- NOTE | 2023-02-03 12:35 | Diagnostic Imaging Report ---
INDICATION: Right upper quadrant pain. Patient was administered 5.1 mCi technetium 99m Choletec intravenously and imaging over the abdomen was performed. At 1 hour patient ingested Ensure and a gallbladder ejection fraction was calculated. There is homogeneous uptake of activity by the liver with prompt excretion of activity into the common duct and gallbladder. There is normal passage of activity into the small bowel. Gallbladder ejection fraction is abnormally low at 3%. Normal values are 35% or greater. IMPRESSION: 1. Patent cystic duct and common bile duct. 2. Low gallbladder ejection fraction of 3%. Dictated by: Dictated on workstation # [id number]
== END ==
LOC: CARD 10:00
PROVIDERS: ATTEND Nurse Practitioner
DX: R10.11 Right upper quadrant pain (principal)
CPT/HCPCS: 78227; A9537

== ENCOUNTER 2023-02-16 05:36 | Outpatient (CLI) | payer OTHER ==
[~2023-02-16] VITALS: Ht 160 cm; Wt 88.6 kg
[2023-02-16] MEDS ORDERED: PARO40TA3 PO (13:20)
[2023-02-16] MEDS ORDERED: CYCL10TA25 PO (13:20)
[2023-02-16] MEDS ORDERED: ONDA4TAB11 SL (13:20)
[2023-02-16] MEDS ORDERED: LAMO200T5 PO (13:20)
[2023-02-16] MEDS ORDERED: SEMA1PEN5 SQ (13:21)
[2023-02-16] MEDS ORDERED: SUMA50TA2 PO (13:40)
== END 2023-02-16 13:45 | disposition home or self-care (01) ==
LOC: PREOP 05:36
PROVIDERS: ATTEND Surgery
DX: Z01.818 Encounter for other preprocedural examination (principal)

== ENCOUNTER 2023-02-23 10:17 | Day surgery (SDC) | payer OTHER ==
[2023-02-23] VITALS (12 sets, daily range): BP systolic 104–141; BP diastolic 78–98
[~2023-02-23] VITALS: Ht 160 cm; Wt 88.6 kg
[~2023-02-23 10:17] MED LIST changes: +CYCL10TA25 PO; +LAMO200T5 PO; +ONDA4TAB11 SL; +PARO40TA3 PO; +SEMA1PEN5 SQ; +SUMA50TA2 PO
[2023-02-23] MEDS ORDERED: BUP/EPI 0.5% 1:200,000 (SENSORCAINE) 30 ML VIAL ONE (10:22)
--- NOTE | 2023-02-23 10:22 | Progress Note-Pre Operative ---
Pre-Operative Progress Note Date of Available H&P: February 08, 2023 Date H&P Reviewed: February 23, 2023 Time H&P Reviewed: 10:21 History & Physical: H&P Reviewed, Patient Examed, No changes noted Pre-Operative Diagnosis: Biliary Dyskinesia JEFFREY ANDREWS DO February 23, 2023 10:22
[2023-02-23] MEDS ORDERED: INDOCYANINE GREEN 25 MG (ICG) VIAL IV ONE (10:30)
[2023-02-23] MEDS ORDERED: proPOfol 200 MG/20 ML (DIPRIVAN) VIAL IV ONE (10:37)
[2023-02-23] MEDS ORDERED: LIDOCAINE PF 2% 5 ML (XYLOCAINE) VIAL ONE (10:37)
[2023-02-23] MEDS ORDERED: ONDANSETRON 4 MG/2 ML (SDV) Z0FRAN ONE ×2 (10:37→12:46)
[2023-02-23] MEDS ORDERED: GLYCOPYRROLATE 0.2 MG/ML (ROBINUL) 2 ML VIAL ONE (10:37)
[2023-02-23] MEDS ORDERED: fentaNYL INJ 100 MCG/2 ML AMP ONE (10:38)
[2023-02-23] MEDS ORDERED: NEOSTIGMINE (BLOXIVERZ ) 1 MG/1ML 10 ML VIAL ONE (10:38)
[2023-02-23] MEDS ORDERED: ROCURONIUM 50 MG/5 ML (ZEMURON) VIAL IV ONE (10:38)
[2023-02-23] MEDS ORDERED: MIDAZOLAM 2 MG/2 ML (VERSED) VIAL ONE (10:38)
[2023-02-23] MEDS ORDERED: LACTATED RINGERS 1,000 ML IV PRN (10:45)
[2023-02-23] MEDS ORDERED: ceFAZolin INJECTION 2,000 MG in NS (IVPB) 50 ML IV ONE (10:45)
[2023-02-23] MEDS ORDERED: BUP/EPI 0.5% 1:200,000 (SENSORCAINE) 30 ML VIAL INJ ONE (11:32)
[2023-02-23] MEDS ORDERED: HYDROmorphone 2 MG/ML VIAL (DILAUDID) ONE (11:53)
[2023-02-23] MEDS ORDERED: SUGAMMADEX 500 MG/5 ML VIAL (BRIDION) IV ONE (12:24)
[2023-02-23] MEDS ORDERED: MEPERIDINE (DEMEROL) INJ 50 MG/ML ONE (12:29)
[2023-02-23] MEDS ORDERED: SEVOFLURANE (ULTANE) 15 ML INHAL SOLN ONE (12:31)
--- NOTE | 2023-02-23 12:33 | Progress Note-Post Operative ---
Post-Operative Progess Note Surgeon (s)/Buffing And Polishing Wheel Repairer (s) Surgeon JEFFREY ANDREWS DO Buffing And Polishing Wheel Repairer: Davonte Pre-Operative Diagnosis Biliary Dyskinesia Post-Operative Diagnosis Same plus adhesions Procedure & Operative Findings Date of Procedure 02/23/23 Procedure Performed/Findings PROCEDURE: Laparoscopic cholecystectomy with intraoperative ICG cholangiogram - Robotic COMPLICATIONS: None. PROCEDURE: The patient was taken to the operating suite and was prepped and draped in sterile fashion. A surgical pause was performed. Just superior to the umbilicus, a 12 mm incision was made. Dissection was taken down to the fascia, which was then scored and grasped with a Vera and the abdomen was then entered. An 0 Vicryl suture was placed in a [id number] fashion and a Hunt trocar was placed and secured. Pneumoperitoneum was achieved. Next an 8mm robotic trochar was placed on the right about 8cm from umbilicus and then two more 8mm robotic trochars were placed 8cm apart to the left of the umbilical port. There were adhesions to the gallbladder and a picture was taken. The gallbladder was then grasped at the fundus and elevated superiorly. The adhesions were taken down and then able to grasp at Villanueva's pouch and pull in the infero-lateral direction. The cystic duct and cystic artery were then dissected out. I used the ICG fire-fly to trace the cystic duct into the common bile duct; no occlusions seen. This constituted the cholangiogram. Clip was placed on the distal portion of the cystic duct and two more clips were placed on proximal portion of the cystic duct. Clips were placed along the pro ximal and distal portion of the cystic artery; then both duct and artery were transected. Hook cautery was used to dissect the gallbladder from the gallbladder fossa achieving hemostasis. The gallbladder was placed in an Endobag and removed through the 12 mm trocar site. The abdomen was then reinspected. Copious amounts of irrigation were used to irrigate the abdomen and there were no signs of active bleeding. Hemostasis had been achieved. The 12 mm fascial defect was then closed with 0 Vicryl suture that had been placed in a [id number]-[id number]-chyst fashion. The abdomen was then desufflated, the trocars were removed. The abdomen was then washed and dried. The skin was then closed using 4-0 Monocryl in a subcuticular fashion. The abdomen was washed and dried and Skin Affix was place over incisions. Patient tolerated the procedure well without any complications and was taken to the recovery room in stable condition. Dr. Arauz assisted during this surgery by making incisions, closing incisions, helping to identify anatomy and get the gallbladder out of the abdomen. Anesthesia Type GET Estimated Blood Loss Estimated blood loss (mL): scant Specimens/Packing Specimens Removed GB and contents JEFFREY ANDREWS DO February 23, 2023 12:33
[2023-02-23] MEDS ORDERED: ACHYD1T PO (12:34)
--- NOTE | 2023-02-23 12:36 | Discharge Inst-Surgical ---
Discharge Inst-Surgical Depart Medication/Instructions New, Converted or Re-Newed RX: Transmitted to Pharmacy Patient Instructions Follow up Appt: Make appointment for 1 week. [phone] Instructions: No lifting greater than 20 pounds. No strenuous activity. May shower in 24 hours, no tub bath or soaking. Use incentive spirometer at home as directed. No Smoking Skin/Wound Care: May remove bandages in am. You need to leave the Dermabond on incision it will fall off on it's own. Symptoms to Report: Appetite Changes, Extremity Discoloration, Numbness/Tingling, Swelling Increased, Bleeding Excessive, Eyesight Changes, Pain Increased, Urine Color Change, Constipation(Persistent), Fever over 101 degree F, Pain/Pressure in chest, Urinating Difficulty, Cough Up/Vomit Blood, Heart Beat Irreg/Pounding, Pain/Pressure in jaw, Cramps in feet or legs, Lightheadedness, Pain/Pressure in shoulder, Diarrhea(Persistent), Memory Changes Suddenly, Questions/Concerns, Weight gain consecutive days, Dizziness/Fainting, Nausea/Vomiting, Shortness of Breath, Weight gain over 2 pounds If questions or concerns contact your physician Or seek help at emergency department. Activity Activity as Tolerated: Yes Activity Instructions: Avoid Stress to Incision Driving Instructions: No Driving/Refer to Dr. Naidu Discharge Diet: Avoid Fatty Foods, Low Fat/Low Cholesterol If Any Problems/Questions/Issu: Contact Your Physician, Go to Emergency Room Skin/Wound Care Infection Signs and Symptoms: Increased Redness, Foul Odor of Wound, Increased Drainage, Skin Itchy or Has a Rash, Increased Swelling, Temperature Above 101 F Wound Care Comment: heating pad to shoulder or neck tonight for pain Bathing Instructions: Shower Stitches/Emil/Dermabond Dis: Dermabond Ice Pack: Ice On and Off Site JEFFREY ANDREWS DO February 23, 2023 12:35
[2023-02-23] MEDS ORDERED: morphine INJ 10 MG/ML 1ML (SYR OR VIAL) IVP ONE (12:45)
[2023-02-23] MEDS ORDERED: HYDROmorphone 2 MG/ML VIAL (DILAUDID) IV ONE (12:45)
[2023-02-23] MEDS ORDERED: ONDANSETRON 4 MG/2 ML (SDV) Z0FRAN IVP PRN (12:45)
[2023-02-23] MEDS ORDERED: MEPERIDINE (DEMEROL) INJ 50 MG/ML IVP ONE (12:45)
[2023-02-23] MEDS ORDERED: morphine INJ 10 MG/ML 1ML (SYR OR VIAL) ONE (12:46)
[2023-02-23] MEDS ORDERED: PROMETHAZINE INJ 25 MG/ML (PHENERGAN) AMP ONE (13:13)
[2023-02-23] MEDS ORDERED: PROMETHAZINE INJ 25 MG/ML (PHENERGAN) AMP IVP ONE (13:15)
--- NOTE | 2023-02-23 14:22 | Anesthesia-General Post-Op ---
General Patient Condition Mental Status/LOC: Same as Preop Cardiovascular: Satisfactory Nausea/Vomiting: Present Respiratory: Satisfactory Pain: Controlled Complications: Absent Post Op Complications Complications None Follow Up Care/Instructions Patient Instructions None needed. Anesthesia/Patient Condition Patient Condition Patient had significant nausea in PACU, however she was nauseated preop as well. She is currently doing better in SDC, no complaints, stable vital signs. No complications reported per nursing. MARIAH THORPE DO February 23, 2023 14:22
== END 2023-02-23 15:10 | disposition home or self-care (01) ==
LOC: SDC 10:17
PROVIDERS: ATTEND Surgery
DX: K81.1 Chronic cholecystitis (principal); K82.8 Other specified diseases of gallbladder; K66.0 Peritoneal adhesions (postprocedural) (postinfection); E66.9 Obesity, unspecified; Z68.34 Body mass index [BMI] 34.0-34.9, adult; Z87.891 Personal history of nicotine dependence
CPT/HCPCS: 84703; 87081; 88304; 94664

== ENCOUNTER 2023-03-04 14:22 | Emergency (ER) | payer OTHER ==
[~2023-03-04] VITALS: Ht 160 cm; Wt 87.3 kg
[~2023-03-04 14:22] MED LIST changes: +ACHYD1T PO
[2023-03-04] MEDS ORDERED: NS IV 1000 ML 1,000 ML IV STA ×2 (14:42→15:58)
[2023-03-04] MEDS ORDERED: morphine INJ 10 MG/ML 1ML (SYR OR VIAL) IVP STA (14:42)
[2023-03-04] MEDS ORDERED: ONDANSETRON 4 MG/2 ML (SDV) Z0FRAN IVP ONE (14:45)
--- NOTE | 2023-03-04 14:46 | ED Abdominal Pain ---
General Chief Complaint: Abdominal/GI Problems Stated Complaint: ABD PAIN; N/V Source of Information: Patient, Old Records Exam Limitations: No Limitations History of Present Illness Date Seen by Provider: March 04, 2023 Time Seen by Provider: 14:25 Initial Comments 47-year-old female with past medical history of recent cholecystectomy a couple weeks ago by Dr. Andrews in [place] coming in due to upper abdominal pain that severe, started this morning, associated with 3 episodes of nonbloody nonbilious vomiting. No fever that she knows of. Last bowel movement 2 days ago. Denies any dysuria. Is on a continuous control pill, does not have regular periods. Is otherwise denying any chest pain, shortness of breath, rash, or any other concerns. The pain had been improving since the surgery, and her bruising had also been improving. Allergies and Home Medications Allergies Coded Allergies: Sulfa (Sulfonamide Antibiotics) (Verified Allergy, Unknown, Hives, 02/16/23) Patient Home Medication List Home Medication List Reviewed: Yes Bisacodyl (Dulcolax) 10 Mg Supp.rect, 10 MG RC DAILY Prescribed by: FLORES ALVAREZ on 03/04/23 1609 Cetirizine HCl (Cetirizine HCl) 10 Mg Tablet, 10 MG PO DAILY Prescribed by: FLORES ALVAREZ on 12/26/21 1502 Ciprofloxacin HCl (Ciprofloxacin HCl) 500 Mg Tablet, 500 MG PO BID Prescribed by: FLORES ALVAREZ on 03/04/23 1607 Clonidine HCl (Clonidine HCl) 0.1 Mg Tablet, 0.1 MG PO BID, (Reported) Entered as Reported by: HATTIE GONZALES on 01/12/23 0929 Cromolyn Sodium (Cromolyn Sodium) 5.2 Mg/[place] (4 %) [place].pump, 26 ML NS DAILY, (Reported) Entered as Reported by: HATTIE GONZALES on 01/12/23 0930 Cyclobenzaprine HCl (Cyclobenzaprine HCl) 10 Mg Tablet, 10 MG PO NEEDED PRN for SPASMS, (Reported) Entered as Reported by: Liz Ospina on 02/16/23 1320 Hydrocodone Bit/Acetaminophen (HYDROcodone/APAP 10/325 TABLET) 1 Ea Tab, 1 TAB PO Q6H Prescribed by: JEFFREY ANDREWS on 02/23/23 1234 Lamotrigine (Lamotrigine) 200 Mg Tablet, 1.5 TAB PO DAILY, (Reported) Entered as Reported by: Liz Ospina on 02/16/23 1320 Levonorgestrel-Ethin Estradiol (Lori 90-20 Mcg Tablet) 1 Each Tablet, 1 EACH PO DAILY, (Reported) Entered as Reported by: URIEL POWERS on 02/19/21 2335 Metronidazole (Metronidazole) 500 Mg Tablet, 500 MG PO Q8H Prescribed by: FLORES ALVAREZ on 03/04/23 1607 Ondansetron (Ondansetron Odt) 4 Mg Tab.rapdis, 4 MG SL Q4H PRN for NAUSEA/VOMITING, (Reported) Entered as Reported by: Liz Ospina on 02/16/23 1320 Ondansetron (Ondansetron Odt) 4 Mg Tab.rapdis, 4 MG SL Q6H PRN for N AUSEA/VOMITING Prescribed by: FLORES ALVAREZ on 03/04/23 1607 Paroxetine HCl (Paroxetine HCl) 40 Mg Tablet, 40 MG PO DAILY, (Reported) Entered as Reported by: Liz Ospina on 02/16/23 1320 Semaglutide (Wegovy) 1 Mg/0.5 Ml Pen.injctr, 1 MG SQ WEEK, (Reported) Entered as Reported by: Liz Ospina on 02/16/23 1321 Sumatriptan Succinate (Sumatriptan Succinate) 50 Mg Tablet, 50 MG PO AC, (Reported) Entered as Reported by: Liz Ospina on 02/16/23 1340 Zolpidem Tartrate (Zolpidem Tartrate ER) 12.5 Mg Tab.mphase, 12.5 MG PO DAILY, (Reported) Entered as Reported by: HATTIE GONZALES on 01/12/23 0930 Review of Systems Review of Systems Constitutional: No fever EENTM: No Symptoms Reported Respiratory: No Symptoms Reported Cardiovascular: No Symptoms Reported Gastrointestinal: See HPI Genitourinary: No Symptoms Reported Musculoskeletal: no symptoms reported Past Whzfwie-Nuhgjn-Jgfeiu Hx Patient Social History Substance use?: No Immunizations Up To Date Tetanus Booster (TDap): Unknown First/Initial COVID19 Vaccinat: Yes Second COVID19 Vaccination Vinay: Yes Third COVID19 Vaccination Date: Yes Seasonal Allergies Seasonal Allergies: Yes Past Medical History Surgeries: Yes (wisdom teeth, CERVICAL GROWTH REMOVED) Gallbladder Respiratory: No Asthma Currently Using CPAP: No Currently Using BIPAP: No Cardiac: No Neurological: Yes Headaches /Migraines Sexually Transmitted Disease: No Genitourinary: No Gastrointestinal: Yes Colitis, Chronic Constipation, Polyps, Gall Bladder Disease Musculoskeletal: No Endocrine: No HEENT: Yes Loss of Vision: Denies Hearing Impairment: Denies Cancer: No (PRECANCEROUS CERVICAL GROWTH) Psychosocial: Yes Sleep Difficulties, Anxiety, PTSD, Suicide Attempts, Bipolar, Personality Disorder, Violent Behavior, Depression Integumentary: No Blood Disorders: No Adverse Reaction/Blood Tranf: No Family Medical History No Pertinent Family Hx Physical Exam Vital Signs Vital Signs - First Documented 03/04/23 14:28 Temp 36.1 Pulse 94 Resp 16 B/P (MAP) 144/95 (111) Pulse Ox 98 O2 Delivery Room Air Capillary Refill : Height/Weight/BMI Height: '" Weight: lbs. oz. kg; 34.60 BMI Method: General Appearance: WD/WN, mild distress HEENT: normal ENT inspection Neck: non-tender, full range of motion, supple, normal inspection Respiratory: chest non-tender, lungs clear, normal breath sounds, no respiratory distress, no accessory muscle use Cardiovascular: regular rate, rhythm, no edema, no murmur Gastrointestinal: normal bowel sounds, soft; No distended, No guarding, No rebound; tenderness, other (Surgical wounds are clean, dry, intact) Extremities: normal range of motion, non-tender, normal inspection, no pedal edema, no calf tenderness, normal capillary refill Back: normal inspection, no CVA tenderness Neurologic/Psychiatric: alert Skin: normal color, warm/dry Focused Exam Lactate Level 03/04/23 14:40: Lactic Acid Level 2.44*H Lactic Acid Level Laboratory Tests Test 03/04/23 14:40 Lactic Acid Level 2.44 MMOL/L (0.50-2.00) *H Progress/Results/Core Measures Results/Orders Lab Results Laboratory Tests Test 03/04/23 14:40 Range/Units White Blood Count 18.8 H 4.3-11.0 10^3/uL Red Blood Count 5.32 H 3.80-5.11 10^6/uL Hemoglobin 15.5 11.5-16.0 g/dL Hematocrit 45 35-52 % Mean Corpuscular Volume 84 80-99 fL Mean Corpuscular Hemoglobin 29 25-34 pg Mean Corpuscular Hemoglobin Concent 35 32-36 g/dL Red Cell Distribution Width 13.7 10.0-14.5 % Platelet Count 393 130-400 10^3/uL Mean Platelet Volume 9.1 9.0-12.2 fL Immature Granulocyte % (Auto) 0 % Neutrophils (%) (Auto) 80 H 42-75 % Lymphocytes (%) (Auto) 14 12-44 % Monocytes (%) (Auto) 5 0-12 % Eosinophils (%) (Auto) 1 0-10 % Basophils (%) (Auto) 0 0-10 % Neutrophils # (Auto) 15.0 H 1.8-7.8 10^3/uL Lymphocytes # (Auto) 2.6 1.0-4.0 10^3/uL Monocytes # (Auto) 0.9 0.0-1.0 10^3/uL Eosinophils # (Auto) 0.1 0.0-0.3 10^3/uL Basophils # (Auto) 0.1 0.0-0.1 10^3/uL Immature Granulocyte # (Auto) 0.1 0.0-0.1 10^3/uL Neutrophils % (Manual) 79 % Lymphocytes % (Manual) 13 % Monocytes % (Manual) 4 % Band Neutrophils 4 % Platelet Estimate NORMAL Blood Morphology Comment NORMAL Prothrombin Time 12.5 12.2-14.7 SEC INR Comment 0.9 0.8-1.4 Activated Partial Thromboplast Time 26 24-35 SEC Sodium Level 137 135-145 MMOL/L Potassium Level 3.5 L 3.6-5.0 MMOL/L Chloride Level 100 98-107 MMOL/L Carbon Dioxide Level 20 L 21-32 MMOL/L Anion Gap 17 H 5-14 MMOL/L Blood Urea Nitrogen 7 7-18 MG/DL Creatinine 1.08 0.60-1.30 MG/DL Estimat Glomerular Filtration Rate 63 BUN/Creatinine Ratio 6 Glucose Level 101 70-105 MG/DL Lactic Acid Level 2.44 *H 0.50-2.00 MMOL/L Calcium Level 10.0 8.5-10.1 MG/DL Corrected Calcium 9.8 8.5-10.1 MG/DL Magnesium Level 1.9 1.6-2.4 MG/DL Total Bilirubin 0.5 0.1-1.0 MG/DL Aspartate Amino Transf (AST/SGOT) 9 5-34 U/L Alanine Aminotransferase (ALT/SGPT) 7 0-55 U/L Alkaline Phosphatase 88 40-136 U/L C-Reactive Protein 2.35 H <0.50 MG/DL Total Protein 7.6 6.4-8.2 GM/DL Albumin 4.3 3.2-4.5 GM/DL Lipase 11 8-78 U/L Serum Test, Qualitative NEGATIVE NEGATIVE My Orders Orders - FLORES ALVAREZ MD Ct Abdomen/Pelvis W (03/04/23 14:42) Cbc With Automated Diff (03/04/23 14:42) Comprehensive Metabolic Panel (03/04/23 14:42) Lactic Acid Analyzer (03/04/23 14:42) Lipase (03/04/23 14:42) Magnesium (03/04/23 14:42) Protime With Inr (03/04/23 14:42) Partial Thromboplastin Time (03/04/23 14:42) Crp Fs (03/04/23 14:42) Morphine Injection (Morphine Injection (03/04/23 14:42) Ondansetron Injection (Zofran Injectio (03/04/23 14:45) Ns Iv 1000 Ml (Sodium Chloride 0.9%) (03/04/23 14:42) Hcg,Qualitative Serum (03/04/23 14:46) Iohexol Injection (Omnipaque 350 Mg/Ml 1 (03/04/23 15:00) Received Contrast (Hold Metformin- Contr (03/04/23 15:00) Ns (Ivpb) (Sodium Chloride 0.9% Ivpb Bag (03/04/23 15:00) Manual Differential (03/04/23 14:40) Ns Iv 1000 Ml (Sodium Chloride 0.9%) (03/04/23 15:58) Ciprofloxacin Tablet (Cipro Tablet) (03/04/23 15:58) Metronidazole Tablet (Flagyl Tablet) (03/04/23 16:00) Medications Given in ED Vital Signs/I&O 03/04/23 03/04/23 14:28 16:31 Temp 36.1 Pulse 94 86 Resp 16 18 B/P (MAP) 144/95 (111) 137/82 Pulse Ox 98 97 O2 Delivery Room Air Room Air 03/05/23 00:00 Intake Total 1000 ml Balance 1000 ml Progress Progress Note : Progress Note 47-year-old female with above history coming in due to abdominal pain. ABCs were intact and vitals are stable on presentation. Physical exam with abdominal tenderness but no rebound or signs of peritonitis. An IV was placed and basic labs were obtained including inflammatory markers. She was given a bolus of IV fluids x2 as well as morphine for pain. Her white blood cell count elevated, CRP elevated, lactate just barely above normal at 2.4, normal creatinine, negative test. CT on my interpretation with sigmoid and descending colon and stranding. The radiology read shows a stool ball with constipation and stranding which could be infectious or inflammatory. I consulted with the surgeon, Dr. Andrews who did the patient's case. He reviewed the patient's CT and believes this is more likely just dehydration with constipation. He recommended IV fluids as well as a stool regimen to have regular bowel movements. Likely this is secondary to pain medication. Patient is nontoxic- appearing. I will send her with a prescription for antibiotics which she also received here just in case this is infectious in etiology as well. I believe she is stable for discharge with outpatient follow-up. She was sent home with strict return precautions. Diagnostic Imaging Diagonstic Imaging: CT (abd/pelvis) Comments [facility]. [place], [place] NAME: JERRY OSBORN [facility] REC#: [id number] PT STATUS: REG ER : 1975 PHYSICIAN: FLORES ALVAREZ MD ADMIT DATE: 03/04/23/ER FS Draft Date of Exam:03/04/23 CT ABDOMEN/PELVIS W PROCEDURE: CT abdomen and pelvis with contrast. TECHNIQUE: Multiple contiguous axial images were obtained through the abdomen and pelvis after administration of intravenous contrast. Auto Exposure Controls were utilized during the CT exam to meet ALARA standards for radiation dose reduction. All CT scans use one or more of the following dose optimizing techniques: automated exposure control, MA and/or KvP adjustment based on patient size and exam type or iterative reconstruction. INDICATION: Worsened pain, 1 week postcholecystectomy. Compared with study 11/30/2020. The sigmoid colon is decompressed with some edematous thickening of its wall and likely mucosal hyperemia and hyperenhancement. No sigmoid diverticula. There is perisigmoidal stranding and edema. Proximal to this there is a stool ball mildly distending the descending colon with the remaining colon proximally is stool containing. This may be partially obstructing or impacted. There is adjacent small volume free fluid. No gastric or small bowel dilatation. The gallbladder surgically absent. No perihepatic fluid collection. No findings of abscess or biloma in the operative bed. Pancreas unremarkable. The adrenals negative. The kidneys unobstructed. No abdominal wall hernia, hematoma or fluid collection. The aortoiliac vessels patent and nonaneurysmal and nonacute. There is no hydroureteronephrosis. IMPRESSION: 1. Colonic constipation to the level of the sigmoid colon where there is abrupt narrowing with the distal sigmoid inflamed, edematous and perisigmoidal stranding. This may be an infectious or an inflammatory stricture with some upstream partial obstruction and fecal impaction. No small bowel dilatation. No perforation. No abscess or fistula. Small volume pelvic free fluid. 2. No hepatobiliary or urinary tract pathology. No findings of postsurgical complication. Dictated on workstation # [id number] Dict: 03/04/23 1506 Trans: 03/04/23 1538 [facility] [id number] Interpreted by: CONNIE BOYD Electronically signed by: Departure Impression Primary Impression: Constipation Qualified Codes: K59.03 - Drug induced constipation Additional Impression: Colitis Disposition: 01 HOME, SELF-CARE Condition: Stable Departure-Patient Inst. Decision time for Depature: 16:20 Referrals: JEFFREY ANDREWS PANKAJ K MD (PCP/Family) Primary Care Physician Patient Instructions: Dealing with Constipation from the Drugs You Take, Colitis (DC) Add. Discharge Instructions: It appears like you have a hard stool ball blocking a lot of the stool from coming out. We recommend taking MiraLAX 3 times a day as well as doing a Dulcolax suppository plus potentially an enema if you have not had a large bowel movement by tomorrow. You can buy all of these medications [id number]. We will be sending antibiotics due to the inflammation in your colon as well that could be causing additional pain. Nausea medicines were also sent to your pharmacy. If pain persists, contact Dr. Andrews's office. Scripts Bisacodyl (Dulcolax) 10 Mg Supp.rect 10 MG RC DAILY for 3 Days, #3 SUPP.RECT Prov: FLORES ALVAREZ MD 03/04/23 Ondansetron (Ondansetron Odt) 4 Mg Tab.rapdis 4 MG SL Q6H PRN for NAUSEA/VOMITING for 5 Days, #20 TAB Prov: FLORES ALVAREZ MD 03/04/23 Metronidazole (Metronidazole) 500 Mg Tablet 500 MG PO Q8H for 7 Days, #21 TAB Prov: FLORES ALVAREZ MD 03/04/23 Ciprofloxacin HCl (Ciprofloxacin HCl) 500 Mg Tablet 500 MG PO BID for 7 Days, #14 TAB Prov: FLORES ALVAREZ MD 03/04/23 Work/School Note: Work Release Form Date Seen in the Emergency Department: March 04, 2023 Return to Work: March 06, 2023 Restrictions: Return-No Vomiting(24hrs) FLORES ALVAREZ MD March 04, 2023 14:46
[2023-03-04 14:50] LABS: BASOPHILS # (AUTO) 0.1 10^3/uL (0.0-0.1); BASOPHILS % (AUTO) 0 % (0-10); EOSINOPHILS # (AUTO) 0.1 10^3/uL (0.0-0.3); EOSINOPHILS % (AUTO) 1 % (0-10); HEMATOCRIT 45 % (35-52); HEMOGLOBIN 15.5 g/dL (11.5-16.0); LYMPHOCYTES # (AUTO) 2.6 10^3/uL (1.0-4.0); LYMPHOCYTES % (AUTO) 14 % (12-44); MEAN CORPUSCULAR HEMOGLOBIN 29 pg (25-34); MEAN CORPUSCULAR HGB CONC 35 g/dL (32-36); MEAN CORPUSCULAR VOLUME 84 fL (80-99); MEAN PLATELET VOLUME 9.1 fL (9.0-12.2); MONOCYTES # (AUTO) 0.9 10^3/uL (0.0-1.0); MONOCYTES % (AUTO) 5 % (0-12); NEUTROPHILS % (AUTO) 80 % (42-75); PLATELET COUNT 393 10^3/uL (130-400); WHITE BLOOD COUNT 18.8 10^3/uL (4.3-11.0)
[2023-03-04] MEDS ORDERED: IOHEXOL 350 MG/ML 100 ML (OMNIPAQUE 350) VIAL IV ONE (15:00)
[2023-03-04] MEDS ORDERED: HOLD METFORMIN - RECEIVED CONTRAST 20 ML VIAL IV SCH (15:00)
[2023-03-04] MEDS ORDERED: NS 100 ML (IVPB) BAG IV ONE (15:00)
[2023-03-04 15:01] LABS: BAND NEUTROPHILS 4 %; LYMPHOCYTES % (MANUAL) 13 %; MONOCYTES % (MANUAL) 4 %; NEUTROPHILS % (MANUAL) 79 %
[2023-03-04 15:02] LABS: PLATELET ESTIMATE NORMAL; RBC MORPH NORMAL
[2023-03-04 15:19] LABS: INR 0.9 (0.8-1.4); PROTHROMBIN TIME PATIENT 12.5 SEC (12.2-14.7)
[2023-03-04 15:20] LABS: POTASSIUM 3.5 MMOL/L (3.6-5.0)
[2023-03-04 15:21] LABS: ALBUMIN 4.3 GM/DL (3.2-4.5); BILIRUBIN,TOTAL 0.5 MG/DL (0.1-1.0); CREATININE SERUM 1.08 MG/DL (0.60-1.30); MAGNESIUM 1.9 MG/DL (1.6-2.4); TOTAL PROTEIN 7.6 GM/DL (6.4-8.2)
--- NOTE | 2023-03-04 15:39 | Diagnostic Imaging Report ---
PROCEDURE: CT abdomen and pelvis with contrast. TECHNIQUE: Multiple contiguous axial images were obtained through the abdomen and pelvis after administration of intravenous contrast. Auto Exposure Controls were utilized during the CT exam to meet ALARA standards for radiation dose reduction. All CT scans use one or more of the following dose optimizing techniques: automated exposure control, MA and/or KvP adjustment based on patient size and exam type or iterative reconstruction. INDICATION: Worsened pain, 1 week postcholecystectomy. Compared with study 11/30/2020. The sigmoid colon is decompressed with some edematous thickening of its wall and likely mucosal hyperemia and hyperenhancement. No sigmoid diverticula. There is perisigmoidal stranding and edema. Proximal to this there is a stool ball mildly distending the descending colon with the remaining colon proximally is stool containing. This may be partially obstructing or impacted. There is adjacent small volume free fluid. No gastric or small bowel dilatation. The gallbladder surgically absent. No perihepatic fluid collection. No findings of abscess or biloma in the operative bed. Pancreas unremarkable. The adrenals negative. The kidneys unobstructed. No abdominal wall hernia, hematoma or fluid collection. The aortoiliac vessels patent and nonaneurysmal and nonacute. There is no hydroureteronephrosis. IMPRESSION: 1. Colonic constipation to the level of the sigmoid colon where there is abrupt narrowing with the distal sigmoid inflamed, edematous and perisigmoidal stranding. This may be an infectious or an inflammatory stricture with some upstream partial obstruction and fecal impaction. No small bowel dilatation. No perforation. No abscess or fistula. Small volume pelvic free fluid. 2. No hepatobiliary or urinary tract pathology. No findings of postsurgical complication. Dictated by: Dictated on workstation # [id number]
[2023-03-04] MEDS ORDERED: CIPROFLOXACIN 500 MG (CIPRO) TABLET PO STA (15:58)
[2023-03-04] MEDS ORDERED: metroNIDAZOLE 500 MG (FLAGYL) TAB PO ONE (16:00)
[2023-03-04] MEDS ORDERED: CIPR500T5 PO (16:07)
[2023-03-04] MEDS ORDERED: ONDA4TAB11 SL (16:07)
[2023-03-04] MEDS ORDERED: METR-145 PO (16:07)
[2023-03-04] MEDS ORDERED: BISA10SU58 RC (16:09)
[2023-03-04 16:31] VITALS: BP 137/82
== END 2023-03-04 16:33 | disposition home or self-care (01) ==
LOC: EDUNIT# 14:22 → ER FS 14:23
DX: K59.00 Constipation, unspecified (principal); K52.9 Noninfective gastroenteritis and colitis, unspecified; R79.82 Elevated C-reactive protein (CRP); Z90.49 Acquired absence of other specified parts of digestive tract
CPT/HCPCS: 36415; 74177; 80053; 83605; 83690; 83735; 84703; 85007; 85027; 85610; 85730; 86141